=== PATIENT | male | born 1955 | race African-American/Black ===

== ENCOUNTER 2018-03-17 14:59 | Emergency (ER) | payer MEDICAID, OTHER ==
[~2018-03-17] VITALS: Ht 182.9 cm; Wt 99.8 kg
[2018-03-17] MEDS ORDERED: AMOXIL250 MG ORAL (15:15)
[2018-03-17 15:21] VITALS: BP 145/92
--- NOTE | 2018-03-17 15:35 | Emergency Room Report ---
History of Present Illness General Chief Complaint: General Complaint Source: Patient Present Illness HPI Patient was asked with complaints of weakness and dizziness Reports that he has been on antibiotics and pain medication for a dental infection He is going to be having removal on Yesterday he had an episode of weakness Today he had an episode again where he felt dizzy and weak did not associated with movement or position He felt that he might have infection in his system Denies any vomiting or diarrhea Allergies: Coded Allergies: No Known Allergies (Unverified , 03/17/18) Patient History Past Medical History: see triage record Pertinent Family History: none Reviewed Nursing Documentation: PMH: Agreed; PSxH: Agreed Nursing Documentation-PMH Past Medical History: No Stated History Review of Systems All Other Systems: negative except mentioned in HPI Physical Exam Vital Signs Date Time Temp Pulse Resp B/P (MAP) Pulse Ox O2 Delivery O2 Flow Rate FiO2 03/17/18 15:11 98.3 89 15 145/92 96 Room Air 98.2 Sp02 EP Interpretation: reviewed, normal General Appearance: well appearing, no apparent distress Head: normocephalic, atraumatic Eyes: bilateral eye PERRL, bilateral eye EOMI ENT: hearing grossly normal, normal pharynx, TMs + canals normal, uvula midline Neck: full range of motion, supple, no meningismus, no bony tend Respiratory: lungs clear, normal breath sounds, no rhonchi, no respiratory distress, no retraction, no accessory muscle use Cardiovascular #1: normal peripheral pulses, regular rate, rhythm, no edema, no gallop, no JVD, no murmur Gastrointestinal: normal bowel sounds, non tender, soft, no mass, no organomegaly, non-distended, no guarding, no hernia, no pulsatile mass, no rebound Genitourinary: no CVA tenderness Musculoskeletal: normal inspection Neurologic: oriented x3, responsive, early childhood services coordinator III-XII nml as tested, motor strength/ tone normal, sensory intact Psychiatric: mood/affect normal Skin: normal color, no rash, warm/dry, palpation normal Lymphatic: normal inspection, no adenopathy Medical Decision Making Diagnostic Impression: Primary Impression: Medication reaction Additional Impressions: Weakness Dizziness ER Course Multiple differentials considered Patient associated symptoms fairly closely with taking the antibiotics At this time baseline blood work are obtained for further evaluation of electrolyte, hemodynamic pathology All within normal limits x-ray shows old granulomatous disease no acute pathology Patient has done well remains appropriate and stable for close outpatient follow -up Labs Test 03/17/18 16:59 White Blood Count 7.4 K/UL (4.8-10.8) Red Blood Count 5.51 M/UL (4.70-6.10) Hemoglobin 16.8 G/DL (14.2-18.0) Hematocrit 49.6 % (42.0-52.0) Mean Corpuscular Volume 90 FL (80-99) Mean Corpuscular Hemoglobin 30.5 PG (27.0-31.0) Mean Corpuscular Hemoglobin Concent 33.8 G/DL (32.0-36.0) Red Cell Distribution Width 11.8 % (11.6-14.8) Platelet Count 158 K/UL (150-450) Mean Platelet Volume 8.3 FL (6.5-10.1) Neutrophils (%) (Auto) 67.0 % (45.0-75.0) Lymphocytes (%) (Auto) 24.7 % (20.0-45.0) Monocytes (%) (Auto) 6.6 % (1.0-10.0) Eosinophils (%) (Auto) 1.0 % (0.0-3.0) Basophils (%) (Auto) 0.7 % (0.0-2.0) Sodium Level 138 MMOL/L (136-145) Potassium Level 5.0 MMOL/L (3.5-5.1) Chloride Level 102 MMOL/L (98-107) Carbon Dioxide Level 29 MMOL/L (21-32) Anion Gap 7 mmol/L (5-15) Blood Urea Nitrogen 17 mg/dL (7-18) Creatinine 1.0 MG/DL (0.55-1.30) Estimat Glomerular Filtration Rate > 60 mL/min (>60) Glucose Level 101 MG/DL (74-106) Calcium Level 9.9 MG/DL (8.5-10.1) Total Bilirubin 0.8 MG/DL (0.2-1.0) Aspartate Amino Transf (AST/SGOT) 171 U/L (15-37) Alanine Aminotransferase (ALT/SGPT) 274 U/L (12-78) Alkaline Phosphatase 98 U/L (46-116) Total Creatine Kinase 228 U/L (26-308) Creatine Kinase MB 3.6 NG/ML (0.0-3.6) Creatine Kinase MB Relative Index 1.5 Troponin I 0.000 ng/mL (0.000-0.056) Total Protein 8.9 G/DL (6.4-8.2) Albumin 4.6 G/DL (3.4-5.0) Globulin 4.3 g/dL Albumin/Globulin Ratio 1.1 (1.0-2.7) Lipase 157 U/L (73-393) Rhythm Strip Diag. Results EP Interpretation: yes Rate: 66 Rhythm: NSR, no PVC's, no ectopy Chest X-Ray Diagnostic Results Chest X-Ray Diagnostic Results : Chest X-Ray Ordered: Yes # of Views/Limited/Complete: 1 View Indication: Chest Pain EP Interpretation: Yes Interpretation: no consolidation, no effusion, no pneumothorax Impression: No acute disease - old granulomatous disease Electronically Signed by: Adilene Bhatt DO Last Vital Signs Date Time Temp Pulse Resp B/P (MAP) Pulse Ox O2 Delivery O2 Flow Rate FiO2 03/17/18 15:11 98.3 89 15 145/92 96 Room Air 98.2 Status: improved Disposition: HOME, SELF-CARE Condition: Improved Additional Instructions: Patient is provided with the discharge instructions notified to follow up with primary doctor in the next 2-3 days otherwise return to the er with any worsening symptoms. Please note that this report is being documented using [employer] technology. This can lead to erroneous entry secondary to incorrect interpretation by the dictating instrument. Adilene Bhatt DO March 17, 2018 15:35
--- NOTE | 2018-03-17 17:19 | Diagnostic Imaging Report ---
Indication: Chest pain Technique: One view of the chest Comparison: none Findings: Calcified nodes are seen in the right pulmonary hilum. The lungs and pleural spaces are clear. The heart size is normal Impression: Evidence of old granulomatous disease No acute process
[2018-03-17 17:20] LABS: BASOPHILS % (AUTO) 0.7 % (0.0-2.0); HEMATOCRIT 49.6 % (42.0-52.0); HEMOGLOBIN 16.8 G/DL (14.2-18.0); LYMPHOCYTES % (AUTO) 24.7 % (20.0-45.0); MEAN CORPUSCULAR VOLUME 90 FL (80-99); MONOCYTES % (AUTO) 6.6 % (1.0-10.0); PLATELET COUNT 158 K/UL (150-450); RED BLOOD COUNT 5.51 M/UL (4.70-6.10); RED CELL DISTRIBUTION WIDTH 11.8 % (11.6-14.8); WHITE BLOOD COUNT 7.4 K/UL (4.8-10.8)
[2018-03-17 17:39] LABS: ANION GAP 7 mmol/L (5-15); BLOOD UREA NITROGEN 17 mg/dL (7-18); CALCIUM 9.9 MG/DL (8.5-10.1); CARBON DIOXIDE 29 MMOL/L (21-32); CHLORIDE 102 MMOL/L (98-107); SODIUM 138 MMOL/L (136-145)
[2018-03-17 17:53] LABS: ALANINE AMINOTRANSFERASE 274 U/L (12-78); ALBUMIN 4.6 G/DL (3.4-5.0); ALBUMIN/GLOBULIN RATIO 1.1 (1.0-2.7); ALKALINE PHOSPHATASE 98 U/L (46-116); ASPARTATE AMINO TRANSFERASE 171 U/L (15-37); BILIRUBIN,TOTAL 0.8 MG/DL (0.2-1.0); CKMB 3.6 NG/ML (0.0-3.6); CREATINE KINASE 228 U/L (26-308)
[2018-03-17 18:03] VITALS: BP 130/76
--- NOTE | 2018-03-18 16:43 | Cardiology Report ---
APPROVED REPORT EKG Measurement Heart [id number] Normal sinus rhythm Moderate voltage criteria for LVH, may be normal variant Borderline ECG
== END 2018-03-17 18:03 | disposition home or self-care (01) ==
LOC: EMR 17:48
DX: T36.8X5A Adverse effect of other systemic antibiotics, initial encounter (principal); Y92.9 Unspecified place or not applicable
CPT/HCPCS: 36415; 71045; 80053; 82550; 82553; 83690; 84484; 85025; 93005; 99283